=== PATIENT | female | born 1970 | race Caucasian/White ===

== ENCOUNTER → 2020-01-10 | Outpatient (CLI) | payer BC ==
[~2020-01-10] MED LIST: ACET325 PO; Advil200 M1 PO
== END | disposition home or self-care (01) ==
LOC: LAB SHORT 12:49 → LAB EV 12:49
DX: N39.0 Urinary tract infection, site not specified (principal)
CPT/HCPCS: 87086

== ENCOUNTER → 2021-11-04 | Outpatient (CLI) | payer BC | END | disposition home or self-care (01) | LOC: LAB 15:42 → LAB SHORT 15:42 | DX: D22.5 Melanocytic nevi of trunk (principal) | CPT/HCPCS: 88305 ==

== ENCOUNTER 2024-12-18 06:35 | Day surgery (SDC) | payer BC ==
[~2024-12-18] VITALS: Ht 165.1 cm; Wt 65.8 kg
[~2024-12-18 06:35] MED LIST changes: -Advil200 M1 PO; +IBUP200 PO; +Lactated Ringer's 1,000 ML IV ONE
[2024-12-18] MEDS ORDERED: Midazolam HCl 1MG / ML 2ML Vial ONE (06:56)
[2024-12-18] MEDS ORDERED: FentaNYL Citrate 50 MCG/ML 2 ML Injection ONE (06:56)
[2024-12-18] MEDS ORDERED: propofoL 20 ML IV ONE ×2 (06:56→08:01)
[2024-12-18] MEDS ORDERED: CeFAZolin Sodium 2,000 MG VIAL ONE (07:01)
[2024-12-18] MEDS ORDERED: Ondansetron HCl 2 MG / ML 2ML Vial ONE (07:02)
[2024-12-18] MEDS ORDERED: Dexamethasone Sod Phos 10 MG/ML 1ML VIAL ONE (07:02)
[2024-12-18] MEDS ORDERED: Lidocaine 1%-Epineph 1:100000 20 ML MDV ONE (07:03)
[2024-12-18] MEDS ORDERED: Lidocaine 2%-Epineph 1:200000 20 ML SDV ONE (07:05)
[2024-12-18] MEDS ORDERED: Bupivacaine 0.5% HCl 5 MG/ML 30MLVIAL ONE (07:05)
[2024-12-18] MEDS ORDERED: Dexmedetomidine HCL 200 MCG / 2 ML ONE (07:07)
[2024-12-18] MEDS ORDERED: GABA100 PO (07:08)
[2024-12-18] MEDS ORDERED: NEURONTIN300 MG PO (07:08)
[2024-12-18] MEDS ORDERED: HYDROCODONE-AC1 EA19 (07:09)
[2024-12-18] MEDS ORDERED: Lactated Ringer's 1,000 ML IV ONE (07:20)
--- NOTE | 2024-12-18 07:46 | NUR ---
12/18/[address] [facility] 0720: PROBE COVER APPLIED TO ULTRASOUND MACHINE. DR LOCKHART REFUSED TO USE PROBE COVER, STATES "PATIENT SAFETY RISK". DR LOCKHART STATES HE IS AWARE HE IS SUPPOSED TO USE THE PROBE COVER, BUT HE WILL NOT BE USING IT. 0727: TIMEOUT COMPLETED FOR NERVE BLOCK. 0733: START OF BLOCK PROCEDURE BY DR LOCKHART. 0735: BLOCK PROCEDURE COMPLETED BY DR LOCKHART.
[2024-12-18 08:43] VITALS: BP 95/61
== END 2024-12-18 09:02 | disposition home or self-care (01) ==
LOC: ORSCSDS 06:35
PROVIDERS: Orthopaedic Surgery
PROC: 0PSH04Z Reposition Right Radius with Internal Fixation Device, Open Approach (ICD-10-PCS; principal; 2024-12-18 08:00)
DX: S52.571A Other intraarticular fracture of lower end of right radius, initial encounter for closed fracture (principal); W18.2XXA Fall in (into) shower or empty bathtub, initial encounter; F17.290 Nicotine dependence, other tobacco product, uncomplicated; Z79.899 Other long term (current) drug therapy
CPT/HCPCS: C1713; J0690; J1100; J2250; J2405; J2704; J3010; J7120